=== PATIENT | male | born 1985 | race Caucasian/White ===

== ENCOUNTER → 2024-10-20 | Day surgery (SDC) | payer OTHER ==
[~2024-10-20] MED LIST: ACETAMINOPHEN 1000 MG/100 ML 100 ML IV ONE; ACETAMINOPHEN/CODEINE 300MG - 30MG TAB ONE; ASACOL HD800 MG; BENTYL; CARAFATE1 GM PO; DEXAMETHASONE SOD PHOS INJ 4 MG/ML SDV ONE; FENTANYL CITRATE/PF 100MCG/2 ML INJ ONE; MIDAZOLAM HCL 2 MG/2 ML VIAL ONE; ONDANSETRON HCL INJ 2MG/ML 2ML 2 MG/ML VIAL ONE; PANTOPRAZOLE SO40 MG; PANTOPRAZOLE SO40 MG PO; PHENERGAN 25 MG; PROPOFOL IV EMULSION 10 MG/ML 20 ML VIAL ONE; REGLAN10 MG PO; SEVOFLURANE INHAL SOLN 250 ML PEN BTL ONE; SUGAMMADEX SODIUM 200 MG/2 ML VIAL IV ONE
[2024-10-20] MEDS: LACTATED RINGER'S 1,000 ML ONE (08:23)
[2024-10-20 09:26] VITALS: TEMP 98.5
[2024-10-20] MEDS: FENTANYL CITRATE/PF 100MCG/2 ML INJ ONE (09:55)
[2024-10-20] MEDS: ACETAMINOPHEN/CODEINE 300MG - 30MG TAB PO ONE (10:30)
[2024-10-20 10:50] VITALS: BP 133/95; PULSE 74; RESP 18; O2SAT 98
== END | disposition home or self-care (01) ==
LOC: OR 05:53
PROVIDERS: ATTEND Otolaryngology Otolaryngology/Facial Plastic Surgery
DX: J32.1 Chronic frontal sinusitis (principal); J32.2 Chronic ethmoidal sinusitis; J32.0 Chronic maxillary sinusitis; J32.3 Chronic sphenoidal sinusitis; J34.89 Other specified disorders of nose and nasal sinuses; J34.2 Deviated nasal septum; R06.83 Snoring; R04.0 Epistaxis; E66.01 Morbid (severe) obesity due to excess calories; K21.9 Gastro-esophageal reflux disease without esophagitis; F17.220 Nicotine dependence, chewing tobacco, uncomplicated
CPT/HCPCS: 30520; 31259; 31267; 31276; 88304; 88311; 93005; J0131; J1100; J2250; J2405; J2704; J3010; J7121